=== PATIENT | male | born 1950 | race Hispanic/Latino ===

== ENCOUNTER 2024-01-19 00:57 | Emergency (ER) | payer MEDICARE ==
[~2024-01-19] VITALS: Ht 175.3 cm; Wt 98.4 kg
[2024-01-19 00:57] VITALS: TEMP 98.4
[2024-01-19] MEDS ORDERED: SODIUM CHLORIDE 0.9% 1000ML 1,000 ML ONE (01:44)
[2024-01-19] MEDS: SODIUM CHLORIDE 0.9% 1000ML 1,000 ML IV STA (01:45)
[2024-01-19 02:01] LABS: CLARITY,URINE CLEAR (CLEAR); COLOR,URINE YELLOW (YELLOW); GLUCOSE, URINE NEGATIVE (NEGATIVE); LEUKOCYTE ESTERASE ,URINE NEGATIVE (NEGATIVE); NITRITE,URINE NEGATIVE (NEGATIVE); PH,URINE 5.5 (5 - 7); PROTEIN,URINE DIPSTICK 1+ (NEGATIVE)
[2024-01-19 02:02] LABS: BILIRUBIN,URINE NEGATIVE (NEGATIVE); KETONES,URINE NEGATIVE (NEGATIVE); URINE UROBILINOGEN 0.2 mg/dL (0.2 - 1)
[2024-01-19 02:30] LABS: ANION GAP 15.9 mmol/L (8-16); BILIRUBIN,TOTAL 0.3 mg/dL (0.2-1.2); CREATININE, SERUM 1.15 mg/dL (0.72-1.25); POTASSIUM 3.9 mmol/L (3.5-5.1); TOTAL PROTEIN 7.1 g/dL (6.5-8.1)
[2024-01-19 02:51] LABS: BACTERIA,URINE FEW /HPF; EPITHELIAL CELLS,URINE RARE /LPF; RBC,URINE 0-5 /HPF (0-5); WBC,URINE (MAN) 0-5 /HPF (0-5)
[2024-01-19 02:52] LABS: ALBUMIN 4.1 g/dL (3.5-5.0)
[2024-01-19 02:53] LABS: ALBUMIN/GLOBULIN RATIO 1.4 (0.8-2.0)
[2024-01-19 02:54] LABS: TROPONIN I 0.025 ng/mL (0-0.300)
[2024-01-19] MEDS ORDERED: IOPAMIDOL 370 MG/ML 100 ML INFUS..BTL INJ ONE (02:59)
[2024-01-19 04:10] LABS: HEMATOCRIT 40.2 % (38.2-49.6); HEMOGLOBIN 12.7 g/dL (14.0-18.0); MEAN CORPUSCULAR HEMOGLOBIN 27.5 pg (28-32); MEAN CORPUSCULAR HGB CONC 31.6 g/dL (31-35); MEAN CORPUSCULAR VOLUME 87.2 fL (81-99); PLATELET COUNT 212 x10e3/uL (140-360); RED BLOOD COUNT 4.61 x10e6/uL (4.3-5.7); RED CELL DISTRIBUTION WIDTH 15.4 % (11.7-14.4); WHITE BLOOD COUNT 8.89 x10e3/uL (4.8-10.8)
[2024-01-19 04:11] LABS: BASOPHILS # (AUTO) 0.1 (0.0-0.1); BASOPHILS % 0.6 % (0.0-1.0); EOSINOPHILS # (AUTO) 0.2 (0.0-0.4); LYMPHOCYTES # (AUTO) 1.6 (1.0-3.2); LYMPHOCYTES % 18.3 % (18.0-39.1); MONOCYTES # (AUTO) 0.8 (0.2-0.8); MONOCYTES % 9.3 % (4.4-11.3); NEUTROPHILS # (AUTO) 6.2 (2.1-6.9); NEUTROPHILS % 69.4 % (38.7-80.0)
[2024-01-19] MEDS ORDERED: PROTONIX20 MG PO (05:13)
[2024-01-19] MEDS ORDERED: ONDANSETRON ODT4 MG PO (05:13)
[2024-01-19 05:25] VITALS: PULSE 99; RESP 20
[2024-01-19 05:28] VITALS: BP 124/63; O2SAT 99
== END 2024-01-19 05:30 | disposition home or self-care (01) ==
LOC: ER 01:01
DX: R10.13 Epigastric pain (principal); K80.20 Calculus of gallbladder without cholecystitis without obstruction; D35.01 Benign neoplasm of right adrenal gland; R73.9 Hyperglycemia, unspecified; Z11.52 Encounter for screening for COVID-19; R94.31 Abnormal electrocardiogram [ECG] [EKG]
CPT/HCPCS: 36415; 74177; 80053; 81001; 82550; 83690; 84484; 85025; 93005; 99284; J7030; Q9967; U0002

== ENCOUNTER 2024-01-23 22:35 | Inpatient (IN) | payer MEDICARE ==
[~2024-01-23] VITALS: Ht 175.3 cm; Wt 90.9 kg
[~2024-01-23 22:35] MED LIST: ONDANSETRON ODT4 MG PO; PROTONIX20 MG PO
[2024-01-23] MEDS: DICYCLOMINE HCL 20 MG/2 ML VIAL IM ONE (23:22)
[2024-01-23 23:56] LABS: BASOPHILS # (AUTO) 0.1 (0.0-0.1); BASOPHILS % 0.5 % (0.0-1.0); EOSINOPHILS % 0.3 % (0.0-6.0); HEMATOCRIT 38.5 % (38.2-49.6); LYMPHOCYTES # (AUTO) 0.8 (1.0-3.2); LYMPHOCYTES % 6.9 % (18.0-39.1); MEAN CORPUSCULAR HEMOGLOBIN 27.3 pg (28-32); MEAN CORPUSCULAR HGB CONC 31.2 g/dL (31-35); MEAN CORPUSCULAR VOLUME 87.7 fL (81-99); MONOCYTES # (AUTO) 0.8 (0.2-0.8); MONOCYTES % 7.2 % (4.4-11.3); NEUTROPHILS # (AUTO) 9.7 (2.1-6.9); NEUTROPHILS % 84.6 % (38.7-80.0); PLATELET COUNT 210 x10e3/uL (140-360); RED BLOOD COUNT 4.39 x10e6/uL (4.3-5.7); RED CELL DISTRIBUTION WIDTH 15.1 % (11.7-14.4); WHITE BLOOD COUNT 11.46 x10e3/uL (4.8-10.8)
[2024-01-24] VITALS (24 sets, daily range): BP systolic 88–139; BP diastolic 51–79; PULSE 86–112; RESP 18–28; TEMP 99.6–100.8; O2SAT 92–100
[2024-01-24 00:11] LABS: ALBUMIN 3.7 g/dL (3.5-5.0); ALBUMIN/GLOBULIN RATIO 1.1 (0.8-2.0); BILIRUBIN,TOTAL 0.4 mg/dL (0.2-1.2); CALCIUM 9.1 mg/dL (8.4-10.2); CREATININE, SERUM 1.26 mg/dL (0.72-1.25); TOTAL PROTEIN 7.2 g/dL (6.5-8.1)
[2024-01-24] MEDS: ONDANSETRON HCL INJ 2MG/ML 2ML 2 MG/ML VIAL IV STA (00:16)
[2024-01-24] MEDS: Morphine 2mg Syringe 2 MG/ML SYR IV ONE ×2 (00:16→01:34)
[2024-01-24] MEDS: SODIUM CHLORIDE 0.9% 1000ML 1,000 ML IV SCH (01:41)
[2024-01-24] MEDS: ACETAMINOPHEN 325 MG TAB PO ONE (06:04)
[2024-01-24] MEDS: SACUBITRIL/VALSARTAN 24MG/26MG 1 EA TAB PO SCH ×2 (09:00→21:17)
[2024-01-24] MEDS ORDERED: HYDRALAZINE HCL 20 MG/ML VIAL IV PRN (09:00)
[2024-01-24] MEDS: CARVEDILOL 3.125 MG TAB PO SCH ×2 (09:45→21:17)
[2024-01-24] MEDS: ENOXAPARIN SODIUM INJ 100 MG/ML SYR SC SCH (11:21)
[2024-01-24] MEDS: Morphine 4mg INJECTION 4 MG/ML INJ IV PRN (11:21)
[2024-01-24] MEDS ORDERED: IOPAMIDOL 370 MG/ML 100 ML INFUS..BTL INJ ONE (11:22)
[2024-01-24] MEDS: FUROSEMIDE INJ 10 MG/ML 4 ML VIAL IV SCH (12:22)
[2024-01-24] MEDS: HYDROMORPHONE 1MG/1ML INJ IV PRN (14:02)
[2024-01-24] MEDS: ONDANSETRON HCL INJ 2MG/ML 2ML 2 MG/ML VIAL IV PRN (14:03)
[2024-01-24] MEDS: ACETAMINOPHEN 1000 MG/100 ML IV PRN (14:03)
[2024-01-24 14:52] LABS: INR 1.09; PROTHROMBIN TIME 14.9 seconds (11.9-14.5)
[2024-01-24] MEDS ORDERED: SODIUM CHLORIDE 0.9% 500ML 500 ML ONE (15:49)
[2024-01-24] MEDS ORDERED: MIDAZOLAM HCL 2 MG/2 ML VIAL ONE (16:13)
[2024-01-24] MEDS ORDERED: CEFTRIAXONE 1 GM VIAL ONE (16:13)
[2024-01-24] MEDS ORDERED: SODIUM CHLORIDE 0.9% 250ML 250 ML ONE (16:13)
[2024-01-24] MEDS ORDERED: FENTANYL CITRATE/PF 100MCG/2 ML INJ ONE (16:14)
[2024-01-24] MEDS ORDERED: LIDOCAINE HCL 1% 30ML-PF VIAL ONE (16:41)
[2024-01-24] MEDS: LIDOCAINE 4% PATCH TP SCH (18:29)
[2024-01-24] MEDS: METRONIDAZOLE 500MG/NS 100ML 100 ML IV SCH (19:52)
[2024-01-25] VITALS (46 sets, daily range): BP systolic 44–125; BP diastolic 29–81; PULSE 60–104; RESP 16–30; TEMP 98.4–99.8; O2SAT 82–100
[2024-01-25 06:33] LABS: BASOPHILS % 0.2 % (0.0-1.0); HEMATOCRIT 35.6 % (38.2-49.6); LYMPHOCYTES # (AUTO) 0.9 (1.0-3.2); LYMPHOCYTES % 7.2 % (18.0-39.1); MEAN CORPUSCULAR HEMOGLOBIN 27.1 pg (28-32); MEAN CORPUSCULAR HGB CONC 30.9 g/dL (31-35); MEAN CORPUSCULAR VOLUME 87.7 fL (81-99); MONOCYTES # (AUTO) 1.5 (0.2-0.8); NEUTROPHILS # (AUTO) 10.3 (2.1-6.9); NEUTROPHILS % 80.1 % (38.7-80.0); PLATELET COUNT 200 x10e3/uL (140-360); RED BLOOD COUNT 4.06 x10e6/uL (4.3-5.7); RED CELL DISTRIBUTION WIDTH 15.3 % (11.7-14.4); WHITE BLOOD COUNT 12.87 x10e3/uL (4.8-10.8)
[2024-01-25 06:55] LABS: ALBUMIN 2.7 g/dL (3.5-5.0); ALBUMIN/GLOBULIN RATIO 0.8 (0.8-2.0); ANION GAP 15.1 mmol/L (8-16); BILIRUBIN,TOTAL 0.6 mg/dL (0.2-1.2); CALCIUM 8.7 mg/dL (8.4-10.2); CREATININE, SERUM 2.3 mg/dL (0.72-1.25); POTASSIUM 4.1 mmol/L (3.5-5.1); TOTAL PROTEIN 6.3 g/dL (6.5-8.1)
[2024-01-25] MEDS: ALBUMIN 25% 25GM 100ML 0.25 GM/ML BTL IV ONE (08:48)
[2024-01-25] MEDS: ACETAMINOPHEN 325 MG TAB PO PRN (18:37)
[2024-01-25] MEDS: LACTATED RINGER'S 1,000 ML INJ SCH (18:42)
[2024-01-26] VITALS (30 sets, daily range): BP systolic 91–136; BP diastolic 39–110; PULSE 69–89; RESP 15–28; TEMP 98–99.1; O2SAT 94–100
[2024-01-26 06:09] LABS: BASOPHILS % 0.5 % (0.0-1.0); EOSINOPHILS # (AUTO) 0.1 (0.0-0.4); EOSINOPHILS % 1.2 % (0.0-6.0); HEMATOCRIT 30.8 % (38.2-49.6); HEMOGLOBIN 9.6 g/dL (14.0-18.0); LYMPHOCYTES # (AUTO) 0.8 (1.0-3.2); LYMPHOCYTES % 10.4 % (18.0-39.1); MEAN CORPUSCULAR HEMOGLOBIN 27.2 pg (28-32); MEAN CORPUSCULAR HGB CONC 31.2 g/dL (31-35); MEAN CORPUSCULAR VOLUME 87.3 fL (81-99); MONOCYTES # (AUTO) 0.8 (0.2-0.8); MONOCYTES % 10.1 % (4.4-11.3); NEUTROPHILS # (AUTO) 5.8 (2.1-6.9); NEUTROPHILS % 77.4 % (38.7-80.0); PLATELET COUNT 186 x10e3/uL (140-360); RED BLOOD COUNT 3.53 x10e6/uL (4.3-5.7); RED CELL DISTRIBUTION WIDTH 15.1 % (11.7-14.4); WHITE BLOOD COUNT 7.49 x10e3/uL (4.8-10.8)
[2024-01-26 06:35] LABS: MAGNESIUM 2.2 MG/DL (1.3-2.1); PHOSPHORUS 4.2 MG/DL (2.3-4.7)
[2024-01-26 06:37] LABS: ALBUMIN 2.6 g/dL (3.5-5.0); ALBUMIN/GLOBULIN RATIO 0.8 (0.8-2.0); ANION GAP 13.8 mmol/L (8-16); BILIRUBIN,TOTAL 0.5 mg/dL (0.2-1.2); CALCIUM 8.4 mg/dL (8.4-10.2); CREATININE, SERUM 2.15 mg/dL (0.72-1.25); POTASSIUM 3.8 mmol/L (3.5-5.1)
[2024-01-26] MEDS ORDERED: FUROSEMIDE INJ 10 MG/ML 4 ML VIAL IV SCH (09:00)
[2024-01-26] MEDS ORDERED: SPIRONOLACTONE 25 MG TAB PO SCH (09:00)
[2024-01-26] MEDS: SACUBITRIL/VALSARTAN 24MG/26MG 1 EA TAB PO SCH (17:00)
[2024-01-26 19:45] LABS: CLARITY,URINE CLEAR (CLEAR); COLOR,URINE YELLOW (YELLOW)
[2024-01-26 19:46] LABS: GLUCOSE, URINE NEGATIVE (NEGATIVE); KETONES,URINE TRACE (NEGATIVE); LEUKOCYTE ESTERASE ,URINE NEGATIVE (NEGATIVE); NITRITE,URINE NEGATIVE (NEGATIVE); PH,URINE 5.5 (5 - 7); PROTEIN,URINE DIPSTICK 2+ (NEGATIVE); URINE UROBILINOGEN 0.2 mg/dL (0.2 - 1)
[2024-01-26 19:47] LABS: BILIRUBIN,URINE NEGATIVE (NEGATIVE)
[2024-01-26 19:57] LABS: AMORPHOUS SEDIMENT,URINE MODERATE (FEW); BACTERIA,URINE MODERATE /HPF; RBC,URINE 0-5 /HPF (0-5); URIC ACID CRYSTALS,URINE MODERATE (FEW)
[2024-01-26 20:10] LABS: CREATININE,URINE RANDOM 97.95 mg/dL (63-166); TOTAL PROTEIN, URINE 54.4 mg/dL (1-14)
[2024-01-27] VITALS (22 sets, daily range): BP systolic 93–148; BP diastolic 42–108; PULSE 59–88; RESP 14–26; TEMP 97.3–100; O2SAT 94–99
[2024-01-27 06:48] LABS: BASOPHILS % 0.5 % (0.0-1.0); EOSINOPHILS # (AUTO) 0.2 (0.0-0.4); EOSINOPHILS % 3.1 % (0.0-6.0); HEMATOCRIT 29.6 % (38.2-49.6); HEMOGLOBIN 9.3 g/dL (14.0-18.0); LYMPHOCYTES # (AUTO) 0.8 (1.0-3.2); LYMPHOCYTES % 14.8 % (18.0-39.1); MEAN CORPUSCULAR HEMOGLOBIN 27.4 pg (28-32); MEAN CORPUSCULAR HGB CONC 31.4 g/dL (31-35); MEAN CORPUSCULAR VOLUME 87.3 fL (81-99); MONOCYTES # (AUTO) 0.5 (0.2-0.8); MONOCYTES % 8.8 % (4.4-11.3); NEUTROPHILS % 72.4 % (38.7-80.0); PLATELET COUNT 206 x10e3/uL (140-360); RED BLOOD COUNT 3.39 x10e6/uL (4.3-5.7); RED CELL DISTRIBUTION WIDTH 14.7 % (11.7-14.4); WHITE BLOOD COUNT 5.55 x10e3/uL (4.8-10.8)
[2024-01-27 07:10] LABS: ALBUMIN 2.5 g/dL (3.5-5.0); ALBUMIN/GLOBULIN RATIO 0.8 (0.8-2.0); ANION GAP 9.9 mmol/L (8-16); BILIRUBIN,TOTAL 0.4 mg/dL (0.2-1.2); CALCIUM 8.8 mg/dL (8.4-10.2); CREATININE, SERUM 1.09 mg/dL (0.72-1.25); POTASSIUM 3.9 mmol/L (3.5-5.1); TOTAL PROTEIN 5.8 g/dL (6.5-8.1)
[2024-01-28] VITALS (9 sets, daily range): BP systolic 123–147; BP diastolic 59–85; PULSE 59–93; RESP 18–20; TEMP 98–98.7; O2SAT 96–100
[2024-01-28] MEDS: CEFTRIAXONE 2 GM in SODIUM CHLORIDE 0.9% 100 ML IV SCH (08:02)
[2024-01-28 13:40] LABS: CALCIUM 8.8 mg/dL (8.4-10.2); CREATININE, SERUM 0.87 mg/dL (0.72-1.25); POTASSIUM 3.8 mmol/L (3.5-5.1)
[2024-01-28 15:59] LABS: ANION GAP 12.8 mmol/L (8-16)
[2024-01-28] MEDS: ENOXAPARIN SOD INJ 60 MG/0.6 ML SYR SC SCH (20:50)
[2024-01-29] VITALS (8 sets, daily range): BP systolic 115–148; BP diastolic 57–72; PULSE 63–99; RESP 18–19; TEMP 97.7–98.6; O2SAT 97–99
[2024-01-29 06:11] LABS: BASOPHILS % 0.9 % (0.0-1.0); EOSINOPHILS # (AUTO) 0.2 (0.0-0.4); HEMATOCRIT 30.6 % (38.2-49.6); HEMOGLOBIN 9.7 g/dL (14.0-18.0); LYMPHOCYTES # (AUTO) 1.2 (1.0-3.2); LYMPHOCYTES % 26.1 % (18.0-39.1); MEAN CORPUSCULAR HEMOGLOBIN 27.2 pg (28-32); MEAN CORPUSCULAR HGB CONC 31.7 g/dL (31-35); MEAN CORPUSCULAR VOLUME 85.7 fL (81-99); MONOCYTES # (AUTO) 0.5 (0.2-0.8); MONOCYTES % 10.6 % (4.4-11.3); NEUTROPHILS # (AUTO) 2.6 (2.1-6.9); NEUTROPHILS % 55.9 % (38.7-80.0); PLATELET COUNT 255 x10e3/uL (140-360); RED BLOOD COUNT 3.57 x10e6/uL (4.3-5.7); RED CELL DISTRIBUTION WIDTH 14.6 % (11.7-14.4); WHITE BLOOD COUNT 4.63 x10e3/uL (4.8-10.8)
[2024-01-29 06:30] LABS: ANION GAP 11.7 mmol/L (8-16); CALCIUM 8.8 mg/dL (8.4-10.2); CREATININE, SERUM 0.78 mg/dL (0.72-1.25); POTASSIUM 3.7 mmol/L (3.5-5.1)
[2024-01-30] VITALS (8 sets, daily range): BP systolic 115–126; BP diastolic 54–64; PULSE 61–80; RESP 18–21; TEMP 97.7–98.4; O2SAT 94–99
[2024-01-30 06:53] LABS: BASOPHILS # (AUTO) 0.1 (0.0-0.1); BASOPHILS % 1.2 % (0.0-1.0); EOSINOPHILS # (AUTO) 0.2 (0.0-0.4); EOSINOPHILS % 3.9 % (0.0-6.0); HEMATOCRIT 31.7 % (38.2-49.6); HEMOGLOBIN 9.9 g/dL (14.0-18.0); LYMPHOCYTES # (AUTO) 1.3 (1.0-3.2); LYMPHOCYTES % 22.6 % (18.0-39.1); MEAN CORPUSCULAR HEMOGLOBIN 26.9 pg (28-32); MEAN CORPUSCULAR HGB CONC 31.2 g/dL (31-35); MEAN CORPUSCULAR VOLUME 86.1 fL (81-99); MONOCYTES # (AUTO) 0.5 (0.2-0.8); MONOCYTES % 8.9 % (4.4-11.3); NEUTROPHILS # (AUTO) 3.6 (2.1-6.9); PLATELET COUNT 299 x10e3/uL (140-360); RED BLOOD COUNT 3.68 x10e6/uL (4.3-5.7); RED CELL DISTRIBUTION WIDTH 14.6 % (11.7-14.4); WHITE BLOOD COUNT 5.84 x10e3/uL (4.8-10.8)
[2024-01-30 07:20] LABS: ANION GAP 12.1 mmol/L (8-16); CALCIUM 9.1 mg/dL (8.4-10.2); CREATININE, SERUM 0.94 mg/dL (0.72-1.25); POTASSIUM 4.1 mmol/L (3.5-5.1)
[2024-01-30] MEDS: SPIRONOLACTONE 25 MG TAB PO SCH (08:32)
[2024-01-30] MEDS ORDERED: ONDANSETRON HCL 4 MG ORAL DISINTEGRATING TAB PO PRN (13:45)
[2024-01-30] MEDS: APIXABAN 5 MG TABLET PO SCH (15:56)
[2024-01-31] VITALS: BP 124/62; PULSE 63; RESP 18; TEMP 98.5; O2SAT 98
[2024-01-31 04:00] VITALS: BP 123/64; PULSE 66; RESP 19; TEMP 98.2; O2SAT 96
[2024-01-31 08:00] VITALS: BP 123/64; PULSE 66; RESP 19; TEMP 98.2; O2SAT 96
[2024-01-31 08:14] VITALS: BP 123/72; PULSE 92; RESP 18; TEMP 98.1; O2SAT 100
[2024-01-31 09:07] VITALS: PULSE 91; RESP 18; O2SAT 95
[2024-01-31 12:12] VITALS: BP 121/61; PULSE 73; RESP 18; TEMP 98.2; O2SAT 99
== END 2024-01-31 13:37 | disposition home or self-care (01) | DRG 871 ==
LOC: ER 22:44 → ERHOLD 01-24 01:34 → MED/SURG 01-24 08:20 → ICU 01-24 12:47 → MED/SURG 01-27 21:51
PROVIDERS: ADMIT Internal Medicine; ATTEND Internal Medicine
PROC: 0F9430Z Drainage of Gallbladder with Drainage Device, Percutaneous Approach (ICD-10-PCS; principal; 2024-01-24)
PROC: 3E03329 Introduction of Other Anti-infective into Peripheral Vein, Percutaneous Approach (ICD-10-PCS; 2024-01-24)
PROC: 02HV33Z Insertion of Infusion Device into Superior Vena Cava, Percutaneous Approach (ICD-10-PCS; 2024-01-25)
PROC: B548ZZA Ultrasonography of Superior Vena Cava, Guidance (ICD-10-PCS; 2024-01-25)
DX: A41.9 Sepsis, unspecified organism (principal); I50.43 Acute on chronic combined systolic (congestive) and diastolic (congestive) heart failure; N17.0 Acute kidney failure with tubular necrosis; K80.00 Calculus of gallbladder with acute cholecystitis without obstruction; I13.0 Hypertensive heart and chronic kidney disease with heart failure and stage 1 through stage 4 chronic kidney disease, or unspecified chronic kidney disease; D62 Acute posthemorrhagic anemia; I24.0 Acute coronary thrombosis not resulting in myocardial infarction; I42.0 Dilated cardiomyopathy; R65.20 Severe sepsis without septic shock; E11.22 Type 2 diabetes mellitus with diabetic chronic kidney disease; N18.9 Chronic kidney disease, unspecified; E86.0 Dehydration; E87.8 Other disorders of electrolyte and fluid balance, not elsewhere classified; E11.51 Type 2 diabetes mellitus with diabetic peripheral angiopathy without gangrene; Z95.820 Peripheral vascular angioplasty status with implants and grafts; I25.10 Atherosclerotic heart disease of native coronary artery without angina pectoris; Z95.1 Presence of aortocoronary bypass graft; Z95.5 Presence of coronary angioplasty implant and graft; Z95.810 Presence of automatic (implantable) cardiac defibrillator; R16.0 Hepatomegaly, not elsewhere classified; R53.81 Other malaise; E66.9 Obesity, unspecified; Z68.29 Body mass index [BMI] 29.0-29.9, adult; Z86.73 Personal history of transient ischemic attack (TIA), and cerebral infarction without residual deficits; Z87.891 Personal history of nicotine dependence; Z11.52 Encounter for screening for COVID-19; Z79.899 Other long term (current) drug therapy
CPT/HCPCS: 36415; 36569; 47490; 71045; 71260; 74177; 74470; 76942; 80048; 80053; 81001; 82570; 82948; 83690; 83735; 83880; 84100; 84156; 84484; 85025; 85610; 87070; 87205; 93005; 93306; 94799; 99152; 99252; 99284; C1729; C1769; J0696; J1170; J1650; J1940; J2001; J2250; J2270; J2405; J2470; J2543; J7030; J7040; J7050; P9047; Q9967; U0002

== ENCOUNTER 2024-10-17 22:19 | Emergency (ER) | payer MEDICARE ==
[~2024-10-17] VITALS: Ht 175.3 cm; Wt 90.7 kg
[2024-10-18 00:56] LABS: CORONAVIRUS COVID-19 AG NEGATIVE (NEGATIVE); INFLUENZA A AG NEGATIVE (NEGATIVE); INFLUENZA B AG NEGATIVE (NEGATIVE)
[2024-10-18] MEDS ORDERED: AZITHROMYCIN250 MG PO (01:12)
[2024-10-18 01:32] VITALS: RESP 20; O2SAT 96
[2024-10-18 01:46] VITALS: PULSE 20; TEMP 97.8
== END 2024-10-18 01:40 | disposition home or self-care (01) ==
LOC: ER 22:28
DX: R05.9 Cough, unspecified (principal); J20.9 Acute bronchitis, unspecified; R09.89 Other specified symptoms and signs involving the circulatory and respiratory systems; I10 Essential (primary) hypertension; E11.9 Type 2 diabetes mellitus without complications; I50.9 Heart failure, unspecified; I25.10 Atherosclerotic heart disease of native coronary artery without angina pectoris; E78.5 Hyperlipidemia, unspecified; I73.9 Peripheral vascular disease, unspecified; M54.9 Dorsalgia, unspecified; G89.29 Other chronic pain; Z11.52 Encounter for screening for COVID-19; Z95.1 Presence of aortocoronary bypass graft
CPT/HCPCS: 71045; 99283

== ENCOUNTER → 2024-11-12 | Outpatient (REF) | payer MEDICARE ==
[~2024-11-12] MED LIST changes: +ALDACTONE25 MG PO; +AMLODIPINE BESYL5 MG PO; +ASPIRIN81 MG PO; +AZITHROMYCIN250 MG PO; +BENZONATATE100 MG PO; +CARVEDILOL3.125 MG PO; +CEFDINIR300 MG PO; +CLOPIDOGREL75 MG PO; +CONSTULOSE10 GM/15 M; +DIOVAN160 MG PO; +METFORMIN HCL500 MG PO; +NITROGLYCERIN0.4 MG SL; +ROSUVASTATIN CA20 MG; +VENTOLIN HFA18 GM INH; +ZETIA10 MG PO
[2024-11-12 10:43] LABS: BASOPHILS # (AUTO) 0.1 (0.0-0.1); BASOPHILS % 0.8 % (0.0-1.0); EOSINOPHILS # (AUTO) 0.1 (0.0-0.4); HEMATOCRIT 40.3 % (38.2-49.6); HEMOGLOBIN 12.8 g/dL (14.0-18.0); LYMPHOCYTES # (AUTO) 1.3 (1.0-3.2); LYMPHOCYTES % 19.1 % (18.0-39.1); MEAN CORPUSCULAR HEMOGLOBIN 26.8 pg (28-32); MEAN CORPUSCULAR HGB CONC 31.8 g/dL (31-35); MEAN CORPUSCULAR VOLUME 84.5 fL (81-99); MONOCYTES # (AUTO) 0.7 (0.2-0.8); MONOCYTES % 9.8 % (4.4-11.3); NEUTROPHILS # (AUTO) 4.5 (2.1-6.9); PLATELET COUNT 205 x10e3/uL (140-360); RED BLOOD COUNT 4.77 x10e6/uL (4.3-5.7); RED CELL DISTRIBUTION WIDTH 16.2 % (11.7-14.4); WHITE BLOOD COUNT 6.64 x10e3/uL (4.8-10.8)
== END ==
LOC: RAD 10:09 → EDSTATUS 11-20 11:00
PROVIDERS: ATTEND Internal Medicine Gastroenterology
DX: Z01.818 Encounter for other preprocedural examination (principal); Z12.11 Encounter for screening for malignant neoplasm of colon; I10 Essential (primary) hypertension; E11.9 Type 2 diabetes mellitus without complications; R19.5 Other fecal abnormalities; Z68.32 Body mass index [BMI] 32.0-32.9, adult; Z71.3 Dietary counseling and surveillance; Z86.0100 Personal history of colon polyps, unspecified; Z87.891 Personal history of nicotine dependence
CPT/HCPCS: 36415; 85025; 93005

== ENCOUNTER → 2024-12-25 | Day surgery (SDC) | payer MEDICARE ==
[2024-12-23 09:08] LABS: BASOPHILS # (AUTO) 0.1 (0.0-0.1); EOSINOPHILS # (AUTO) 0.1 (0.0-0.4); EOSINOPHILS % 1.5 % (0.0-6.0); HEMOGLOBIN 12.9 g/dL (14.0-18.0); LYMPHOCYTES # (AUTO) 1.5 (1.0-3.2); LYMPHOCYTES % 24.7 % (18.0-39.1); MEAN CORPUSCULAR HEMOGLOBIN 26.3 pg (28-32); MEAN CORPUSCULAR HGB CONC 31.5 g/dL (31-35); MEAN CORPUSCULAR VOLUME 83.7 fL (81-99); MONOCYTES # (AUTO) 0.5 (0.2-0.8); MONOCYTES % 8.3 % (4.4-11.3); NEUTROPHILS # (AUTO) 3.8 (2.1-6.9); NEUTROPHILS % 64.2 % (38.7-80.0); PLATELET COUNT 219 x10e3/uL (140-360); WHITE BLOOD COUNT 5.92 x10e3/uL (4.8-10.8)
[~2024-12-25] MED LIST changes: +EPHEDRINE SULFATE INJ 50 MG/ML VIAL ONE; +FENTANYL CITRATE/PF 100MCG/2 ML INJ ONE; +LIDOCAINE HCL 2% LOCAL INJ 5 ML SDV VIAL INJ ONE; +PROPOFOL IV EMULSION 10 MG/ML 20 ML VIAL ONE
[2024-12-25] MEDS: LACTATED RINGER'S 1,000 ML ONE (11:01)
[2024-12-25 11:59] VITALS: TEMP 97.3
[2024-12-25 12:15] VITALS: BP 109/59; PULSE 80; RESP 16; O2SAT 98
== END | disposition home or self-care (01) ==
LOC: OR 09:24
PROVIDERS: ATTEND Internal Medicine Gastroenterology
DX: Z09 Encounter for follow-up examination after completed treatment for conditions other than malignant neoplasm (principal); K63.5 Polyp of colon; D12.4 Benign neoplasm of descending colon; D12.3 Benign neoplasm of transverse colon; K64.8 Other hemorrhoids; R19.5 Other fecal abnormalities; I11.0 Hypertensive heart disease with heart failure; I50.9 Heart failure, unspecified; E78.00 Pure hypercholesterolemia, unspecified; E11.51 Type 2 diabetes mellitus with diabetic peripheral angiopathy without gangrene; Z79.84 Long term (current) use of oral hypoglycemic drugs; F41.9 Anxiety disorder, unspecified; E66.9 Obesity, unspecified; Z71.3 Dietary counseling and surveillance; Z68.32 Body mass index [BMI] 32.0-32.9, adult; I25.10 Atherosclerotic heart disease of native coronary artery without angina pectoris; Z95.5 Presence of coronary angioplasty implant and graft; Z95.810 Presence of automatic (implantable) cardiac defibrillator; Z87.891 Personal history of nicotine dependence; Z01.812 Encounter for preprocedural laboratory examination; Z86.73 Personal history of transient ischemic attack (TIA), and cerebral infarction without residual deficits; Z79.899 Other long term (current) drug therapy; Z79.02 Long term (current) use of antithrombotics/antiplatelets; Z79.82 Long term (current) use of aspirin
CPT/HCPCS: 36415; 45380; 45385; 85025; 88305; J2003; J2704; J3010; J7121; 45384

== ENCOUNTER 2025-01-27 06:04 | Day surgery (SDC) | payer MEDICARE ==
[2025-01-22 11:19] LABS: BASOPHILS % 0.9 % (0.0-1.0); EOSINOPHILS % 1.7 % (0.0-6.0); LYMPHOCYTES % 25.8 % (18.0-39.1); MONOCYTES % 8.8 % (4.4-11.3); NEUTROPHILS % 62.5 % (38.7-80.0); RED CELL DISTRIBUTION WIDTH 16.5 % (11.7-14.4)
[2025-01-22 12:00] LABS: CHOL/HDL RATIO 2.5 (3.9-4.7); EST GLOMERULAR FILTRATION RATE 90.0 ML/MIN (>=60); LDL CHOLESTEROL 60.0 MG/DL (60-130)
[2025-01-22 12:01] LABS: INR 0.87
[2025-01-27] VITALS (15 sets, daily range): BP systolic 105–153; BP diastolic 61–83; PULSE 67–112; RESP 14–26; TEMP 96.6–98.7; O2SAT 91–100
[~2025-01-27] VITALS: Ht 175.3 cm; Wt 92.1 kg
[~2025-01-27 06:04] MED LIST changes: -EPHEDRINE SULFATE INJ 50 MG/ML VIAL ONE; -FENTANYL CITRATE/PF 100MCG/2 ML INJ ONE; +FUROSEMIDE40 MG PO; -LIDOCAINE HCL 2% LOCAL INJ 5 ML SDV VIAL INJ ONE; -PROPOFOL IV EMULSION 10 MG/ML 20 ML VIAL ONE; +ROSUVASTATIN CA20 MG PO; +SENNA LAX8.6 MG PO
[2025-01-27] MEDS: DIPHENHYDRAMINE HCL 25 MG CAP ONE (06:43)
[2025-01-27] MEDS: FAMOTIDINE 20 MG/2 ML VIAL IV ONE (06:44)
[2025-01-27] MEDS: METHYLPREDNISOLONE SOD SUCC 125 MG/2ML VIAL ONE (06:44)
[2025-01-27] MEDS ORDERED: HEPARIN SOD/SOD CHLORIDE 2,000 ML ONE (07:09)
[2025-01-27] MEDS ORDERED: LIDOCAINE HCL 1% LOCAL INJ 20 ML VIAL ONE (07:09)
[2025-01-27] MEDS ORDERED: IOPAMIDOL 370 MG/ML 100 ML INFUS..BTL INJ ONE ×2 (07:09→07:37)
[2025-01-27] MEDS ORDERED: VERAPAMIL HCL 2.5 MG/ML 2 ML VIAL ONE (07:15)
[2025-01-27] MEDS ORDERED: MIDAZOLAM HCL 2 MG/2 ML VIAL ONE ×2 (07:15→07:55)
[2025-01-27] MEDS ORDERED: HEPARIN SOD (PORCINE) 1000 UNIT/ML 30ML ONE (07:15)
[2025-01-27] MEDS ORDERED: FENTANYL CITRATE/PF 100MCG/2 ML INJ ONE ×2 (07:16→09:10)
[2025-01-27] MEDS ORDERED: SODIUM CHLORIDE 0.9% 1000ML 1,000 ML ONE (07:16)
[2025-01-27] MEDS ORDERED: NITROGLYCERIN/D5W 200 MCG/ML 250 ML ONE (07:16)
[2025-01-28] MEDS ORDERED: VENTOLIN HFA18 GM INH (22:45)
== END 2025-01-27 14:30 | disposition home or self-care (01) ==
LOC: CATH LAB 06:04
PROVIDERS: ATTEND Internal Medicine Cardiovascular Disease
DX: I70.213 Atherosclerosis of native arteries of extremities with intermittent claudication, bilateral legs (principal); Z95.820 Peripheral vascular angioplasty status with implants and grafts; I25.10 Atherosclerotic heart disease of native coronary artery without angina pectoris; I10 Essential (primary) hypertension; E11.9 Type 2 diabetes mellitus without complications; Z01.810 Encounter for preprocedural cardiovascular examination; Z01.812 Encounter for preprocedural laboratory examination; Z01.818 Encounter for other preprocedural examination; Z79.02 Long term (current) use of antithrombotics/antiplatelets; Z79.82 Long term (current) use of aspirin; Z79.84 Long term (current) use of oral hypoglycemic drugs; Z79.899 Other long term (current) drug therapy; Z86.73 Personal history of transient ischemic attack (TIA), and cerebral infarction without residual deficits; Z95.5 Presence of coronary angioplasty implant and graft; Z95.810 Presence of automatic (implantable) cardiac defibrillator; Z82.49 Family history of ischemic heart disease and other diseases of the circulatory system
CPT/HCPCS: 36415 ×2; 37224; 71046; 76937; 80048; 80061; 82948; 85025; 85610; 85730; 93005; C1725 ×2; C1760; C1769 ×2; C1887; C2623; J1308; J1644; J2003; J2250; J2919; J3010; J7030; Q9967; 36246; 37246; 75630; 99152; 99153

== ENCOUNTER 2025-01-28 16:13 | Observation (INO) | payer MEDICARE ==
[~2025-01-28] VITALS: Ht 175.3 cm; Wt 93.0 kg
[2025-01-28 16:55] VITALS: TEMP 97.6
[2025-01-28 18:12] LABS: BASOPHILS % 0.2 % (0.0-1.0); EOSINOPHILS % 0.0 % (0.0-6.0); LYMPHOCYTES % 13.0 % (18.0-39.1); MONOCYTES % 8.9 % (4.4-11.3); NEUTROPHILS % 77.5 % (38.7-80.0); RED CELL DISTRIBUTION WIDTH 16.9 % (11.7-14.4)
[2025-01-28 18:18] LABS: INR 0.87
[2025-01-28 18:25] LABS: EST GLOMERULAR FILTRATION RATE 60.0 ML/MIN (>=60)
[2025-01-28 19:00] VITALS: RESP 16
[2025-01-28] MEDS ORDERED: DEXTROSE 50% SYRINGE 50 ML IV PRN (19:00)
[2025-01-28] MEDS ORDERED: ONDANSETRON HCL INJ 2MG/ML 2ML 2 MG/ML VIAL IV PRN (19:00)
[2025-01-28] MEDS ORDERED: Morphine 4mg INJECTION 4 MG/ML INJ IV PRN (19:00)
[2025-01-28] MEDS ORDERED: SODIUM CHLORIDE FLUSH 10 ML SYR INJ PRN (19:00)
[2025-01-28 20:02] VITALS: PULSE 90; RESP 22; O2SAT 97
[2025-01-28] MEDS: INSULIN REGULAR, HUMAN 100 UNIT/1 ML SQ SCH (21:00)
[2025-01-28 21:25] VITALS: PULSE 72
[2025-01-28 22:00] VITALS: BP 141/75; PULSE 81; RESP 18; TEMP 97.8; O2SAT 98
[2025-01-28] MEDS ORDERED: VENTOLIN HFA18 GM INH (22:45)
[2025-01-29] VITALS (7 sets, daily range): BP systolic 106–141; BP diastolic 57–72; PULSE 58–93; RESP 19–22; TEMP 97.6–98; O2SAT 95–100
[2025-01-29 06:41] LABS: BASOPHILS % 0.6 % (0.0-1.0); EOSINOPHILS % 0.3 % (0.0-6.0); LYMPHOCYTES % 23.9 % (18.0-39.1); MONOCYTES % 9.0 % (4.4-11.3); NEUTROPHILS % 65.8 % (38.7-80.0); RED CELL DISTRIBUTION WIDTH 16.9 % (11.7-14.4)
[2025-01-29 07:08] LABS: CHOL/HDL RATIO 2.6 (3.9-4.7); EST GLOMERULAR FILTRATION RATE 92.0 ML/MIN (>=60); LDL CHOLESTEROL 62.0 MG/DL (60-130)
[2025-01-29] MEDS ORDERED: NITROGLYCERIN 0.4 MG SUBL SL PRN (08:45)
[2025-01-29] MEDS ORDERED: ALBUTEROL SULF 0.083% NEB SOLN 3 ML NEB INH PRN ×2 (08:45→09:00)
[2025-01-29] MEDS: CARVEDILOL 3.125 MG TAB PO SCH (08:56)
[2025-01-29] MEDS: ASPIRIN 325 MG TAB EC PO SCH (08:56)
[2025-01-29] MEDS: EZETIMIBE 10 MG TAB PO SCH (08:57)
[2025-01-29] MEDS: ACETAMINOPHEN 325 MG TAB PO PRN (08:57)
[2025-01-29] MEDS: CLOPIDOGREL BISULFATE 75 MG TAB PO SCH (08:57)
[2025-01-29] MEDS: VALSARTAN 160 MG TAB PO SCH (08:58)
[2025-01-29] MEDS: SPIRONOLACTONE 25 MG TAB PO SCH (08:58)
[2025-01-29] MEDS: AMLODIPINE BESYLATE 5 MG TAB PO SCH (08:58)
[2025-01-29] MEDS ORDERED: ACETAMINOPHEN 325 MG TAB PO PRN (09:00)
[2025-01-29] MEDS: FUROSEMIDE 40 MG TAB PO SCH (09:01)
[2025-01-29] MEDS ORDERED: ATORVASTATIN 20 MG TAB PO SCH (21:00)
== END 2025-01-29 18:01 | disposition home or self-care (01) ==
LOC: ER 18:05 → ERHOLD 18:59 → MED/SURG2 21:49
PROVIDERS: ADMIT Internal Medicine; ATTEND Internal Medicine
DX: I25.118 Atherosclerotic heart disease of native coronary artery with other forms of angina pectoris (principal); I11.0 Hypertensive heart disease with heart failure; I50.22 Chronic systolic (congestive) heart failure; Z95.1 Presence of aortocoronary bypass graft; Z95.5 Presence of coronary angioplasty implant and graft; Z95.810 Presence of automatic (implantable) cardiac defibrillator; I73.9 Peripheral vascular disease, unspecified; Z86.718 Personal history of other venous thrombosis and embolism; E11.9 Type 2 diabetes mellitus without complications; Z79.84 Long term (current) use of oral hypoglycemic drugs; E78.5 Hyperlipidemia, unspecified; M54.50 Low back pain, unspecified; F32.9 Major depressive disorder, single episode, unspecified
CPT/HCPCS: 36415 ×2; 71045; 80053 ×2; 80061; 82550; 82948 ×2; 84484 ×2; 85025 ×2; 85610; 85730; 93005; 93306; 94799 ×2; 99284; G0378 ×2

== ENCOUNTER → 2025-02-17 | Day surgery (SDC) | payer MEDICARE ==
[2025-02-12 11:55] LABS: BASOPHILS % 0.6 % (0.0-1.0); EOSINOPHILS % 1.8 % (0.0-6.0); LYMPHOCYTES % 21.9 % (18.0-39.1); MONOCYTES % 7.9 % (4.4-11.3); NEUTROPHILS % 67.2 % (38.7-80.0); RED CELL DISTRIBUTION WIDTH 17.0 % (11.7-14.4)
[2025-02-12 12:17] LABS: INR 0.87
[2025-02-12 12:37] LABS: CHOL/HDL RATIO 2.7 (3.9-4.7); EST GLOMERULAR FILTRATION RATE 82.0 ML/MIN (>=60); LDL CHOLESTEROL 66.0 MG/DL (60-130)
[~2025-02-17] VITALS: Ht 175.3 cm; Wt 92.1 kg
[2025-02-17] VITALS (15 sets, daily range): BP systolic 121–151; BP diastolic 56–80; PULSE 62–99; RESP 13–25; TEMP 96.7–97.7; O2SAT 95–100
[~2025-02-17] MED LIST changes: +FENTANYL CITRATE/PF 100MCG/2 ML INJ ONE; +HEPARIN SOD (PORCINE) 1000 UNIT/ML 30ML ONE; +HEPARIN SOD/SOD CHLORIDE 2,000 ML ONE; +IOPAMIDOL 370 MG/ML 100 ML INFUS..BTL INJ ONE; +LIDOCAINE HCL 1% LOCAL INJ 20 ML VIAL ONE; +MIDAZOLAM HCL 2 MG/2 ML VIAL ONE; +NITROGLYCERIN/D5W 200 MCG/ML 250 ML ONE; +SODIUM CHLORIDE 0.9% 1000ML 2,000 ML ONE; +VERAPAMIL HCL 2.5 MG/ML 2 ML VIAL ONE
== END | disposition home or self-care (01) ==
LOC: CATH LAB 05:36
PROVIDERS: ATTEND Internal Medicine Cardiovascular Disease
DX: I70.213 Atherosclerosis of native arteries of extremities with intermittent claudication, bilateral legs (principal); I71.40 Abdominal aortic aneurysm, without rupture, unspecified; I25.718 Atherosclerosis of autologous vein coronary artery bypass graft(s) with other forms of angina pectoris; Z95.820 Peripheral vascular angioplasty status with implants and grafts; I10 Essential (primary) hypertension; E78.5 Hyperlipidemia, unspecified; E11.9 Type 2 diabetes mellitus without complications; Z01.810 Encounter for preprocedural cardiovascular examination; Z01.812 Encounter for preprocedural laboratory examination; Z01.818 Encounter for other preprocedural examination; Z79.02 Long term (current) use of antithrombotics/antiplatelets; Z79.82 Long term (current) use of aspirin; Z79.84 Long term (current) use of oral hypoglycemic drugs; Z79.899 Other long term (current) drug therapy; Z86.73 Personal history of transient ischemic attack (TIA), and cerebral infarction without residual deficits; Z82.49 Family history of ischemic heart disease and other diseases of the circulatory system; Z83.3 Family history of diabetes mellitus
CPT/HCPCS: 36415 ×2; 37224; 71046; 75625; 80048; 80061; 82948; 85025; 85610; 85730; 93005; C1725; C1760; C1769; C1887 ×3; J1644; J2003; J2250; J3010; J7030; Q9967; 36246; 37246; 75710; 99152; 99153